=== PATIENT | male | born 1990 | race Caucasian/White ===

== ENCOUNTER 2016-12-23 08:03 | Day surgery (SDC) | payer OTHER ==
[~2016-12-23] VITALS: Ht 177.8 cm; Wt 69.9 kg
--- NOTE | 2016-12-28 10:10 | OR ---
ADMIT: 12/23/2016 RM/LOC: [facility] MR#: [id number] [id number] [place] [address] [facility] LAMINE ALEMAN [id number] Operative/Delivery Room Report SEX: M AGE: 26 : 1990 SURGERY DATE: 12/23/2016 SURGEON: John Phillips MD PREOPERATIVE DIAGNOSIS: Abdominal pain with extensive intraabdominal adhesion history. POSTOPERATIVE DIAGNOSIS: Extensive intraabdominal adhesions. PROCEDURE: Laparoscopy with lysis of adhesions. DIVISION [employer] WIRE CHIEF: NANDA Taylor, whose assistance was necessary for laparoscopic visualization. ANESTHESIA: General. ESTIMATED BLOOD LOSS: 10 mL. DESCRIPTION OF PROCEDURE: The patient was taken to the operating room and placed supine on the operating room table. General anesthesia was established. The abdomen was prepped and draped in the standard surgical fashion. A 5 mm infraumbilical incision was made in the skin. The fascia was grasped with Sanjana clamp, and a Veress needle was advanced into the peritoneal cavity. Carbon dioxide was used to insufflate the abdomen to 15 mmHg pressure. The Veress needle was withdrawn, and a 5 mm Optiview trocar was placed. Laparoscope was advanced and showed extensive right upper quadrant abdominal adhesions, consistent with his known history. The 5 mm left upper quadrant and left lateral ports were placed under visualization. Adhesiolysis was performed in the right upper quadrant of omentum with Harmonic Scalpel as well as sharply with laparoscopic scissors. This was performed completely with complete mobilization of all adhesions to the anterior abdominal wall. No enterotomy or damage to surrounding structures was identified. After completion, the ports were removed with no signs of bleeding. The skin edges were approximated with 4-0 Monocryl in a subcuticular fashion and Dermabond. Local anesthetic was injected at the incisions. Sponge, needle, and instrument counts were correct at the end of the case. The patient tolerated the procedure well and transferred to the recovery area in stable condition. John Phillips MD/ taryn JOB #: [id number] CC: John Phillips, Attending Physician Evan Grubbs, Family Physician
== END 2016-12-23 16:35 | disposition home or self-care (01) ==
LOC: SSS 08:03
PROC: 0DNW4ZZ Release Peritoneum, Percutaneous Endoscopic Approach (ICD-10-PCS; principal; 2016-12-23)
DX: K66.0 Peritoneal adhesions (postprocedural) (postinfection) (principal); J45.909 Unspecified asthma, uncomplicated; F17.200 Nicotine dependence, unspecified, uncomplicated; Z98.890 Other specified postprocedural states; Z90.49 Acquired absence of other specified parts of digestive tract; Z79.899 Other long term (current) drug therapy; Z88.6 Allergy status to analgesic agent